=== PATIENT | male | born 1965 | race Caucasian/White ===

== ENCOUNTER → 2018-02-04 | Day surgery (SDC) | payer BC ==
[2018-02-03 12:03] LABS: BASOPHILS # (AUTO) 0.1 (0.0-0.1); BASOPHILS % 0.4 % (0.0-1.0); EOSINOPHILS # (AUTO) 0.3 (0.0-0.4); EOSINOPHILS % 2.3 % (0.0-6.0); HEMATOCRIT 50.7 % (38.2-49.6); HEMOGLOBIN 17.1 g/dL (14.0-18.0); LYMPHOCYTES # (AUTO) 2.3 (1.0-3.2); LYMPHOCYTES % 17.5 % (18.0-39.1); MEAN CORPUSCULAR HEMOGLOBIN 31.1 pg (28-32); MEAN CORPUSCULAR HGB CONC 33.7 g/dL (31-35); MEAN CORPUSCULAR VOLUME 92.2 fL (81-99); MONOCYTES # (AUTO) 0.8 (0.2-0.8); MONOCYTES % 5.8 % (4.4-11.3); NEUTROPHILS # (AUTO) 9.7 (2.1-6.9); NEUTROPHILS % 73.3 % (38.7-80.0); PLATELET COUNT 191 x10e3/uL (140-360)
--- NOTE | 2018-02-03 12:09 | Diagnostic Imaging Report ---
PROCEDURE:CHEST 2 VIEWS TECHNIQUE:PA and lateral chest INDICATION:Preoperative evaluation COMPARISON:None. FINDINGS: The lungs are clear and symmetrically inflated. No pleural effusions. Normal heart size, mediastinal contour, and pulmonary vasculature. Intact skeleton. CONCLUSION: Normal chest. Dictated by: Dakota Galindo M.D. on 02/03/2018 at 12:12 Electronically approved by: Dakota Galindo M.D. on 02/03/2018 at 12:12
[2018-02-03 12:23] LABS: ALANINE AMINOTRANSFERASE 21 IU/L (0-55); ALBUMIN 4.1 g/dL (3.5-5.0); ALBUMIN/GLOBULIN RATIO 1.2 (0.8-2.0); ALKALINE PHOSPHATASE 82 IU/L (40-150); ANION GAP 13.4 mmol/L (8-16); BLOOD UREA NITROGEN 15 mg/dL (7-26); BUN/CREATININE RATIO 17 (6-25); CALCIUM 9.7 mg/dL (8.4-10.2); CARBON DIOXIDE 27 mmol/L (22-29); CHLORIDE 103 mmol/L (98-107); CREATININE, SERUM 0.89 mg/dL (0.72-1.25); EST GLOMERULAR FILTRATION RATE > 60 ML/MIN (60-); GLUCOSE 99 mg/dL (74-118); POTASSIUM 4.4 mmol/L (3.5-5.1); SODIUM 139 mmol/L (136-145)
[~2018-02-04] MED LIST: ACETAMINOPHEN 1000 MG/100 ML IV ONE; ALPRAZOLAM1 MG PO; BACITRACIN 50,000 UNIT VIAL ONE; BUPIVACAINE 0.25%/EPI 30ML SDV INJ ONE; CEFAZOLIN SOD 2 GM/D5W 50ML 50 ML IV ONE; DEXAMETHASONE SOD PHOS INJ 4 MG/ML VIAL ONE; FENTANYL CITRATE/PF 100MCG/2 ML INJ ONE; LIDOCAINE HCL (LTA) 4 ML SOLN ONE; LIDOCAINE HCL 2% LOCAL INJ 5 ML SDV VIAL INJ ONE; MIDAZOLAM HCL 2 MG/2 ML VIAL ONE; ONDANSETRON HCL INJ 2 MG/ML VIAL ONE; PROPOFOL IV EMULSION 10 MG/ML 20 ML VIAL ONE; ROCURONIUM BROMIDE 10 MG/ML 5ML VIAL ONE; SCOPOLAMINE 1.5 MG PATCH ONE; SEVOFLURANE INHAL SOLN 250 ML PEN BTL ONE
--- OUTSIDE RECORDS SUMMARY | 2018-02-04 12:32 | XMS REPORT ---
Author Author [facility] Address Unknown Phone Unavailable Care Team Providers Care Steward/Stewardess Tourist Class Name Role Phone PIERREJEREMY Unavailable Unavailable Joesph Hi Unavailable Unavailable Problems This patient has no known problems. Allergies, Adverse Reactions, Alerts This patient has no known allergies or adverse reactions. Medications This patient has no known medications. Results Test Description Test Time Test Comments Text Results Atomic Results Result Comments CHEST 2 VIEWS [place] [address] Patient Name: SWEETIE ARAIZA MR #: [id number] : 1965 Age/Sex: 52/M Req #: [id number] [facility] Physician: Ordered by: BOBBI DAUGHERTY MD Report #: [id number] Location: OR Room/Bed: Procedure: 0522- 0025 DX/CHEST 2 VIEWS Exam Date: 02/03/18 Exam Time : 1150 REPORT STATUS: Signed PROCEDURE: CHEST 2 VIEWS TECHNIQUE: PA and lateral chest INDICATION: Preoperative evaluation COMPARISON: None. FINDINGS: The lungs are clear and symmetrically inflated. No pleural effusions. Normal heart size, mediastinal contour, and pulmonary vasculature. Intact skeleton. CONCLUSION: Normal chest. Dictated by: Atiya Galindo M.D. on 02/03/2018 at 12:12 Electronically approved by: Atiya Galindo M.D. on 02/03/2018 at 12:12 Dictated By: ATIYA GALINDO MD 121 Transcribed By: VIRAJ on 02/03/18 1212 COPY TO: BOBBI DAUGHERTY MD Abdomen Wo Contrast [facility] [place] [address] [facility] REPORT Name: SWEETIE ARAIZA Acct Number: [id number] :1965 Age:52 Sex:M Ord Phys: Joesph Hi MD Unit Number: [id number] [place] [facility] [address]: Status: REG REF RAD Exam Date: EXAM DESCRIPTION: CT - Abdomen Wo Contrast - 01/28/2018 4:12 pm CLINICAL HISTORY: S39.011D COMPARISON: None. TECHNIQUE: Axial [address] imaging of the abdomen was performed. No IV contrast was administered. Oral contrast was administered. All CT scans are performed using dose optimization technique as appropriate and may include automated exposure control or mA/KV adjustment according to patient size. FINDINGS: No suspicious findings in the lung bases. The liver, spleen, and pancreas show no suspicious findings for non IV contrast imaging. Gallbladder and biliary tree are without suspicious finding. Gallstones can be occult. No hydronephrosis or suspicious renal mass. Isodense masses and pyelonephritis are not excluded on a non IV contrast study. No adrenal abnormality. No dilated bowel loops or bowel wall thickening. No free air , free fluid or inflammatory stranding. No soft tissue mass or bulky lymphadenopathy. No omental thickening. The patient has a 3 centimeter diameter umbilical hernia. The neck is 2 cm in diameter. No bowel involvement. The fat within the hernia and adjacent peritoneal Ms. congested and edematous indicating this may be herniated omentum. Patient also has a very small hernia in the anterior wall to the right of midline. This is 9 cm of above the umbilicus. The hernia is 13 mm in diameter with an 8 millimeter neck. Disc and bony degenerative changes are present. Vascular calcifications are present. Exam sensitivity is decreased when no IV contrast is administered. IMPRESSION: Approximately 3 centimeter fat only umbilical hernia with a 2 centimeter neck. The herniated fat and adjacent peritoneal fat are congested and edematous. Small abdominal wall hernia 9 cm above the umbilicus. This is 13 mm in diameter with an 8 millimeter neck. Signed By: Atiya Dupree MD Signed AT: 01/28/18 3761
--- NOTE | 2018-02-04 18:07 | Operative Report ---
DATE OF PROCEDURE: February 04, 2018 PREOPERATIVE DIAGNOSIS: Umbilical and incisional hernia. POSTOPERATIVE DIAGNOSIS: Incarcerated umbilical incisional hernia. PROCEDURE: Repair of umbilical and incisional hernia. ANESTHESIA: General. INDICATIONS: A 52-year-old male with severe pain umbilical and upper abdomen after lifting heavy weights. He was found on CT scan to have incarcerated hernia at the umbilical and supraumbilical incision area. The patient consented for repair of both hernias under anesthesia. Attendant risks discussed. PROCEDURE FINDINGS: Incarcerated omentum in hernia sac at umbilical and incisional area. DESCRIPTION OF PROCEDURE: The patient was brought to the OR, intubated, and the abdomen prepped with alcohol and draped in sterile fashion. A supraumbilical incision is made extending through the skin and subcutaneous tissue. Her hernia sac identified and dissected off the umbilicus. The hernia sac is opened and incarcerated omentum is amputated along with the sac at the facial level using cautery. Hemostasis is achieved. We have a 2 cm in diameter fascial defect which is closed in the transverse fashion with interrupted 0 Prolene suture. The subcutaneous tissue is approximated with 3-0 Vicryl and the skin with subcuticular stitch. We then made a transverse incision approximately 10 cm above the umbilicus in the midline extending through the subcutaneous tissue down to the hernia sac. The sac is dissected off surrounding the subcutaneous tissue and the fascia level is exposed. The hernia sac is opened and incarcerated omentum is amputated with sac flush to the fascia. We had a fascial defect approximately 2.5 cm and it is closed primarily in a transverse direction with interrupted 0 Prolene suture. The subcutaneous tissue is approximated with 3-0 Vicryl. The skin closed with subcuticular stitch. Dressing applied. The patient is extubated and transported to the recovery room. Estimated blood loss 4 mL. Job#: [id number]
== END | disposition home or self-care (01) ==
LOC: OR 12:31
PROVIDERS: ATTEND Surgery
DX: K42.0 Umbilical hernia with obstruction, without gangrene (principal); K43.0 Incisional hernia with obstruction, without gangrene; F41.9 Anxiety disorder, unspecified; F17.210 Nicotine dependence, cigarettes, uncomplicated; Z01.810 Encounter for preprocedural cardiovascular examination; Z01.812 Encounter for preprocedural laboratory examination; Z01.818 Encounter for other preprocedural examination
CPT/HCPCS: 36415; 49561; 49587; 71046; 80053; 85025; 93005; J1100; J2001; J2250; J2405